=== PATIENT | female | born 1980 | race Caucasian/White ===

== ENCOUNTER 2017-02-10 09:39 | Emergency (ER) | payer OTHER ==
[~2017-02-10] VITALS: Ht 160 cm; Wt 78.8 kg
[2017-02-10 09:42] VITALS: Ht 160 cm; Wt 78.8 kg
--- NOTE | 2017-02-10 10:51 | RADRPT ---
PROCEDURE: XR Chest. CLINICAL INDICATION: Chest pain. TECHNIQUE: Single frontal view of the chest was obtained. COMPARISON: None FINDINGS: The soft tissues are normal. There are degenerative osteophytes in the thoracic spine. The heart, cardiomediastinal silhouette and hilar structures are normal. The pulmonary vasculature is normal. There is a left-sided aorta. The lungs are mildly hyperinflated but this may reflect an excellent in spiration. No acute infiltrate is identified. The costophrenic angles are normal. IMPRESSION: 1. No evidence of active cardiopulmonary disease. 2. Spondylosis of the thoracic spine. RPTAT:AAJJ Physician Margie Date Time Electronically viewed and signed by Physician Margie on 02/10/2017 10:51 JM/
--- NOTE | 2017-02-10 11:40 | ERD ---
ER Documentation Chief Complaint Date/Time DATE: 02/10/17 TIME: 11:29 Chief Complaint neck pain x 4 days, chest discomfort x 3 days, zhao HPI 36-year-old female patient with no significant past medical history presents to the ED complaining of feeling anxious and having chest pain that started intermittently for 4 days. Describes it as strange sensation in feet states that she has been feeling stressed. Patient reports that it radiates to her left arm. Denies any chest pain, shortness of breath, wheezing, cough, fever, chills, abdominal pain, nausea, vomiting. Patient denies any smoking. Denies any family history of heart attacks. Denies having any diabetes, hypertension, hyperlipidemia. Denies any recent traveling. Denies any leg swelling. ROS All systems reviewed and are negative except as per history of present illness. PMhx/Soc Medical and Surgical Hx: pt denies Medical Hx, pt denies Surgical Hx Hx Alcohol Use: No Hx Substance Use: No Hx Tobacco Use: No Smoking Status: Never smoker Physical Exam Vitals Vital Signs Date Time Temp Pulse Resp B/P Pulse Ox O2 Delivery O2 Flow Rate FiO2 02/10/17 09:42 98.1 86 18 126/59 99 Physical Exam Const: [id number], well-nourished. In no acute distress. Head: Atraumatic, normocephalic Eyes: Normal Conjunctiva without injection. No purulent discharge. PERRL. EOMI ENT: Normal external ear. Ear canal without erythema. Tympanic membrane pearly arzate without effusion or bulging. Nasal canal clear with normal turbinates. Moist oropharynx without tonsillar exudates. Non-erythematous pharynx. Uvula midline. No drooling. No trismus. Neck: Full range of motion. No meningismus. No cervical lymphadenopathy. Resp: Clear to auscultation bilaterally. No wheezing, rhonchi, rales, or crackles. No accessory muscle use. No retractions. Cardio: Regular rate and rhythm. No murmurs, rubs or gallops. Chest: Tenderness to palpation of the left anterior chest. Pain is reproducible. Abd: Soft, non tender, non distended. Normal bowel sounds. No palpable masses. No rebound tenderness. No guarding. Skin: No petechiae or rashes Back: No midline tenderness. No CVA tenderness. Ext: No cyanosis, or edema. Neur: Awake and alert. Psych: Normal Mood and Affect Procedures/MDM 36-year-old female patient with no significant past medical history presents to the ED complaining of chest discomfort that started intermittently for 4 days that radiates to her left arm and states that she is also anxious. Patient is afebrile nontoxic appearing. Patient has normal vital signs. Patient stated that she did not want any medications here in the ED. A chest x-ray, EKG was ordered to further evaluate patient. EKG reviewed and interpreted by Dr. Bermeo Rate/Rhythm: [Normal Sinus Rhythm with short [place]] No ectopy, no ST elevations, normal axis. QRS, ST, T-waves: [No changes consistent w/ acute ischemia] Impression: [No evidence of ischemia or arrhythmia] PROCEDURE: XR Chest. CLINICAL INDICATION: Chest pain. TECHNIQUE: Single frontal view of the chest was obtained. COMPARISON: None FINDINGS: The soft tissues are normal. There are degenerative osteophytes in the thoracic spine. The heart, cardiomediastinal silhouette and hilar structures are normal. The pulmonary vasculature is normal. There is a left-sided aorta. The lungs are mildly hyperinflated but this may reflect an excellent inspiration. No acute infiltrate is identified. The costophrenic angles are normal. IMPRESSION: 1. No evidence of active cardiopulmonary disease. 2. Spondylosis of the thoracic spine. Differentials include anxiety vs. chest wall pain. Low suspicion for acute myocardial infarction, pneumothorax, pneumonia, cardiac tamponade, pulmonary embolism, AAA, aortic dissection, thoracic aortic dissection, endocarditis, pericarditis, cocaine-related ischemia, WolffParkinsonWhite syndrome, Brugada Syndrome, Boerhaave's syndrome, cardiac dysrhythmias,meningitis, intracranial bleed, seizure, stroke, TIA or other emergent conditions. Follow up with primary care physician in 1-2 days for a referral to see a barrel rifler hook. Instructed patient to return to the ED sooner for any worsening symptoms. Patient's questions were answered. Patient understood and agreed with discharge plan. Patient discharged stable. Departure Diagnosis: Primary Impression: Chest wall pain Condition: Stable Patient Instructions: Your Body's Response to Anxiety, Anxiety Reaction, Chest Wall Pain, Costochondritis Referrals: COMM[facility]ITY CLIN[facility] YOU HAVE RECEIVED A MEDICAL SCREENING EXAM AND THE RESULTS INDICATE THAT YOU DO NOT HAVE A CONDITION THAT REQUIRES URGENT TREATMENT IN THE EMERGENCY DEPARTMENT. FURTHER EVALUATION AND TREATMENT OF YOUR CONDITION CAN WAIT UNTIL YOU ARE SEEN IN YOUR DOCTORS OFFICE WITHIN THE NEXT 1-2 DAYS. IT IS YOUR RESPONSIBILITY TO MAKE AN APPOINTMENT FOR FOLOW-UP CARE. IF YOU HAVE A PRIMARY DOCTOR --you should call your primary doctor and schedule an appointment IF YOU DO NOT HAVE A PRIMARY DOCTOR YOU CAN CALL OUR PHYSICIAN REFERRAL HOTLINE AT IF YOU CAN NOT AFFORD TO SEE A PHYSICIAN YOU CAN CHOSE FROM THE FOLLOWING [facility] [address] [facility] [address] [facility] [facility] [address] [facility] [address] [facility] [address] [facility] [address] [facility] [facility] YOU HAVE RECEIVED A MEDICAL SCREENING EXAM AND THE RESULTS INDICATE THAT YOU DO NOT HAVE A CONDITION THAT REQUIRES URGENT TREATMENT IN THE EMERGENCY DEPARTMENT. FURTHER EVALUATION AND TREATMENT OF YOUR CONDITION CAN WAIT UNTIL YOU ARE SEEN IN YOUR DOCTORS OFFICE WITHIN THE NEXT 1-2 DAYS. IT IS YOUR RESPONSIBILITY TO MAKE AN APPOINTMENT FOR FOLOW-UP CARE. IF YOU HAVE A PRIMARY DOCTOR --you should call your primary doctor and schedule and appointment IF YOU DO NOT HAVE A PRIMARY DOCTOR YOU CAN CALL OUR PHYSICIAN REFERRAL HOTLINE AT . IF YOU CAN NOT AFFORD TO SEE A PHYSICIAN YOU CAN CHOSE FROM THE FOLLOWING [facility]: [facility] [address] [place] [address] [facility] [address] [place] [address] [facility] [address] [place] [address] [facility]RGENT [facility]/SPECIALTIES Additional Instructions: Llame al doctor MAANA y trung zia ZAN PARA DENTRO DE 2-3 DEL OTRO.Dgale a la secretaria que nosotros le instruimos hacer esta zan.Avise o llame si teixeira condicin se empeora antes de la zan. Regresa aqui si peor o no mejor. LULU RICHMOND PA-C Feb 10, 2017 11:39
== END 2017-02-10 12:14 | disposition home or self-care (01) ==
LOC: FTE 09:39
DX: R07.89 Other chest pain (principal)
CPT/HCPCS: 71010; 93005; Z7502